=== PATIENT | male | born 1960 | race Caucasian/White ===

== ENCOUNTER 2018-11-18 20:10 | Emergency (ER) | payer OTHER ==
[2018-11-18] MEDS: ONDANSETRON 4 MG INJ IV (20:34)
[2018-11-18] MEDS: HYDROCODONE/APAP (10/325) TAB PO (20:37)
[2018-11-18] MEDS: ONDANSETRON (ODT) 4 MG TAB ODT (20:37)
== END 2018-11-18 21:17 | disposition home or self-care (01) ==
LOC: E/R 20:10
DX: S20.212A Contusion of left front wall of thorax, initial encounter (principal); F17.210 Nicotine dependence, cigarettes, uncomplicated; W10.8XXA Fall (on) (from) other stairs and steps, initial encounter; Y92.9 Unspecified place or not applicable
CPT/HCPCS: 71045; 71100; 93005; 99284-25